=== PATIENT | female | born 1950 | race Caucasian/White ===

== ENCOUNTER 2023-04-15 07:21 | Day surgery (SDC) | payer MEDICAID, MEDICARE, OTHER ==
[~2023-04-15] VITALS: Ht 165.1 cm; Wt 65.6 kg
[~2023-04-15 07:21] MED LIST: ATOR40TA75 PO; BSS IRR 500ML/OMIDRIA 4ML IRR BAG (OR ONLY) As Ordered ONE; CEFUROXIME 1MG/0.1ML INTRACAMERAL INJ As Ordered ONE; CYCLOPENTOLATE 1% OPHTH SOLN 2ML BTL OD SCH; LEVO88TA3 PO; LIDOCAINE 1% SDV 5ML VIAL As Ordered ONE; LISI5TAB11 PO; METO50TA7 PO; OFLOXACIN 0.3 % (OCUFLOX) OPTH SOL 5ML OD SCH; OMEP40CA5 PO; PHENYLEPHRINE 2.5% OPHTH SOL 2ML OD SCH; POTA-141 PO; PROPARACAINE 0.5% OPHTH SOL 15ML OD ONE; SUMA25TA3 PO; TAMO20TA8 PO; TROPICAMIDE 1% OPHTH SOLN 15ML OD SCH; VENL150C43 PO
[2023-04-15] MEDS ORDERED: MIDAZOLAM INJ 2MG/2ML VIAL As Ordered ONE (08:19)
[2023-04-15] MEDS ORDERED: DUOVISC (0.50ML VISCOAT/0.85ML PROVISC) OPHTH KIT As Ordered ONE (08:49)
[2023-04-15 09:15] VITALS: BP 133/74; TEMP 98.6; O2SAT 95
== END 2023-04-15 09:38 | disposition home or self-care (01) ==
LOC: M SDC 07:21
PROVIDERS: ATTEND Ophthalmology
DX: H40.1110 Primary open-angle glaucoma, right eye, stage unspecified (principal); H25.11 Age-related nuclear cataract, right eye; E11.9 Type 2 diabetes mellitus without complications; G47.30 Sleep apnea, unspecified; I10 Essential (primary) hypertension; E78.00 Pure hypercholesterolemia, unspecified; E03.9 Hypothyroidism, unspecified; K21.9 Gastro-esophageal reflux disease without esophagitis; F41.9 Anxiety disorder, unspecified; F32.A Depression, unspecified; Z79.899 Other long term (current) drug therapy; Z79.890 Hormone replacement therapy
CPT/HCPCS: 66174; 66984; C1889; J0697; J1097; J2250; V2632

== ENCOUNTER 2023-06-03 06:27 | Day surgery (SDC) | payer MEDICARE ==
[~2023-06-03] VITALS: Ht 165.1 cm; Wt 65.8 kg
[~2023-06-03 06:27] MED LIST changes: +BIMA01SOL OU; -BSS IRR 500ML/OMIDRIA 4ML IRR BAG (OR ONLY) As Ordered ONE; -CEFUROXIME 1MG/0.1ML INTRACAMERAL INJ As Ordered ONE; -CYCLOPENTOLATE 1% OPHTH SOLN 2ML BTL OD SCH; +CYCLOPENTOLATE 1% OPHTH SOLN 2ML BTL OS SCH; -LIDOCAINE 1% SDV 5ML VIAL As Ordered ONE; -OFLOXACIN 0.3 % (OCUFLOX) OPTH SOL 5ML OD SCH; +OFLOXACIN 0.3 % (OCUFLOX) OPTH SOL 5ML OS SCH; -PHENYLEPHRINE 2.5% OPHTH SOL 2ML OD SCH; +PHENYLEPHRINE 2.5% OPHTH SOL 2ML OS SCH; -PROPARACAINE 0.5% OPHTH SOL 15ML OD ONE; +PROPARACAINE 0.5% OPHTH SOL 15ML OS ONE; -TROPICAMIDE 1% OPHTH SOLN 15ML OD SCH; +TROPICAMIDE 1% OPHTH SOLN 15ML OS SCH
[2023-06-03] MEDS ORDERED: BSS IRR 500ML/OMIDRIA 4ML IRR BAG (OR ONLY) As Ordered ONE (06:40)
[2023-06-03] MEDS ORDERED: LIDOCAINE 1% SDV 5ML VIAL As Ordered ONE (06:40)
[2023-06-03] MEDS ORDERED: CEFUROXIME 1MG/0.1ML INTRACAMERAL INJ As Ordered ONE (06:40)
[2023-06-03] MEDS ORDERED: MIDAZOLAM INJ 2MG/2ML VIAL As Ordered ONE ×2 (07:58→08:01)
[2023-06-03] MEDS ORDERED: fentaNYL 100 MCG/2 ML INJECTION As Ordered ONE ×2 (07:58→08:01)
[2023-06-03 08:16] VITALS: BP 137/70; TEMP 98.3; O2SAT 96
== END 2023-06-03 08:31 | disposition home or self-care (01) ==
LOC: M SDC 06:27
PROVIDERS: ATTEND Ophthalmology
DX: H40.10X0 Unspecified open-angle glaucoma, stage unspecified (principal); E11.36 Type 2 diabetes mellitus with diabetic cataract; H25.12 Age-related nuclear cataract, left eye; I10 Essential (primary) hypertension; E78.00 Pure hypercholesterolemia, unspecified; E89.0 Postprocedural hypothyroidism; Z79.899 Other long term (current) drug therapy; K21.9 Gastro-esophageal reflux disease without esophagitis; Z85.3 Personal history of malignant neoplasm of breast; Z92.3 Personal history of irradiation; Z90.710 Acquired absence of both cervix and uterus
CPT/HCPCS: 66174; 66984; C1889; J0697; J1097; J2250; J3010; V2632